=== PATIENT | male | born 1975 | race Two or more races ===

== ENCOUNTER 2024-07-05 11:54 | Emergency (ER) | payer OTHER ==
[~2024-07-05] VITALS: Ht 182.9 cm; Wt 104.3 kg
[2024-07-05] MEDS ORDERED: LEVOTHYROXINE25 MCG (13:04)
[2024-07-05] MEDS ORDERED: KETOROLAC TROMETHAMINE 60 MG VIAL IM ONE (17:00)
[2024-07-05] MEDS ORDERED: IBU800 MG PO (23:05)
== END 2024-07-05 23:10 | disposition home or self-care (01) ==
LOC: ER 11:56
DX: S69.82XA Other specified injuries of left wrist, hand and finger(s), initial encounter (principal); W18.39XA Other fall on same level, initial encounter; Y93.89 Activity, other specified; Y92.89 Other specified places as the place of occurrence of the external cause; M25.572 Pain in left ankle and joints of left foot; M25.561 Pain in right knee; E03.8 Other specified hypothyroidism; I10 Essential (primary) hypertension